=== PATIENT | male | born 1945 | race Caucasian/White ===

== ENCOUNTER 2018-08-27 08:36 | Inpatient (IN) | payer MEDICARE, MEDICAID ==
[~2018-08-27] VITALS: Ht 152.4 cm; Wt 75.0 kg
[~2018-08-27 08:36] MED LIST: AMLO10TA4 PO; ATOR20TA65 PO; COR6 PO; FURO-151 PO; METO-539 PO; PRED5TAB48 PO
[2018-08-27 09:26] LABS: HEMATOCRIT. 29.9 % (42.0-52.0); HEMOGLOBIN. 10.3 g/dL (14.0-18.0); MEAN CORPUSCULAR HEMOGLOBIN 31.9 pg (28.0-32.0); MEAN CORPUSCULAR VOLUME 92.9 fL (80.0-94.0); MEAN PLATELET VOLUME 7.3 fl (7.4-10.4); PLATELET 88 x1000/uL (130-400); RED BLOOD CELL COUNT 3.22 mill/uL (4.7-6.1); RED CELL DISTRIBUTION WIDTH 12.7 % (11.6-14.6)
[2018-08-27 09:28] LABS: CHLORIDE 97 mEq/L (98-107)
[2018-08-27 09:33] LABS: PARTIAL THROMBOPLASTIN TIME 39.4 sec (23.4-31.0)
[2018-08-27 09:36] LABS: PHOSPHORUS 2.6 mg/dL (2.5-4.9)
[2018-08-27 09:56] LABS: PLATELET ESTIMATE DECREASED
[2018-08-27] MEDS ORDERED: ONDANSETRON HCL 4MG/2ML INJ IV PRN (13:00)
[2018-08-27] MEDS ORDERED: DIPHENHYDRAMINE 50MG/ML VIAL IV PRN (13:00)
[2018-08-27] MEDS ORDERED: MAGNESIUM/ALUMINUM HYDROXIDE/SIMETHICONE 30ML UDC PO PRN (13:00)
[2018-08-27] MEDS ORDERED: LORAZEPAM 2MG/ML CPJ IV PRN (13:00)
[2018-08-27] MEDS ORDERED: IPRATROPIUM/ALBUTEROL 0.5-3(2.5)MG/3ML NEB INH PRN (13:00)
[2018-08-27] MEDS ORDERED: HYDROCODONE/ACETAMINOPHEN 5/325MG TABLET PO PRN (13:00)
[2018-08-27] MEDS: ACETAMINOPHEN 325MG TABLET PO PRN (14:53)
[2018-08-27] MEDS: CLONIDINE 0.1MG TABLET PO PRN (14:53)
[2018-08-27 15:05] LABS: PHOSPHORUS 3.2 mg/dL (2.5-4.9)
[2018-08-27 15:08] LABS: CREATINE KINASE 54 IU/L (39-308)
[2018-08-27 15:09] LABS: CREATINE KINASE MB FRACTION < 1.0 ng/mL (0.5-3.6)
[2018-08-27 16:15] VITALS: BP 144/72
[2018-08-27 19:27] LABS: T4 FREE 1.26 ng/dL (0.76-1.46)
[2018-08-27 19:49] LABS: FOLIC ACID (FOLATE) SERUM 13.2 ng/mL (>5.38)
[2018-08-27 20:00] VITALS: BP 153/43
[2018-08-28] VITALS: BP 156/64
[2018-08-28 01:19] LABS: CREATINE KINASE 50 IU/L (39-308)
[2018-08-28 01:20] LABS: CREATINE KINASE MB FRACTION < 1.0 ng/mL (0.5-3.6)
[2018-08-28 04:00] VITALS: BP 160/45
[2018-08-28 06:51] LABS: BASOPHILS % 0.5 % (0.0-2.0); EOSINOPHILS % 5.9 % (0.0-5.0); HEMATOCRIT. 27.9 % (42.0-52.0); HEMOGLOBIN. 9.7 g/dL (14.0-18.0); LYMPHOCYTES % 29.4 % (20.0-50.0); MEAN CORPUSCULAR HEMOGLOBIN 32.4 pg (28.0-32.0); MEAN CORPUSCULAR VOLUME 92.6 fL (80.0-94.0); MEAN PLATELET VOLUME 7.3 fl (7.4-10.4); MONOCYTES % 14.3 % (2.0-8.0); NEUTROPHILS % 49.9 % (40.0-76.0); PLATELET 77 x1000/uL (130-400); RED BLOOD CELL COUNT 3.01 mill/uL (4.7-6.1); RED CELL DISTRIBUTION WIDTH 12.7 % (11.6-14.6)
[2018-08-28 06:58] LABS: CHLORIDE 96 mEq/L (98-107)
[2018-08-28 07:09] LABS: HDL CHOLESTEROL 24 mg/dL (40-59)
[2018-08-28 07:12] LABS: LDL CHOLESTEROL 58 mg/dL (5-100)
[2018-08-28 08:00] VITALS: BP 173/73
[2018-08-28] MEDS: CLONIDINE 0.1MG TABLET PO PRN (11:19)
[2018-08-28 12:00] VITALS: BP 138/58
[2018-08-28] MEDS ORDERED: FUROSEMIDE 40MG TABLET PO SCH (13:15)
[2018-08-28] MEDS: CARVEDILOL 3.125 MG TABLET PO SCH ×2 (14:03→21:00)
[2018-08-28] MEDS: AMLODIPINE 10MG TABLET PO SCH (14:03)
[2018-08-28 16:00] VITALS: BP_SYST 138; BP_SYST 139; BP_DIAS 63; BP_DIAS 69
[2018-08-28 20:00] VITALS: BP 144/56
[2018-08-28] MEDS: ATORVASTATIN CALCIUM 20MG TABLET PO SCH (21:00)
[2018-08-29] VITALS: BP 150/66
[2018-08-29 04:00] VITALS: BP 144/69
[2018-08-29 06:30] LABS: BASOPHILS % 0.5 % (0.0-2.0); EOSINOPHILS % 6.3 % (0.0-5.0); HEMATOCRIT. 25.7 % (42.0-52.0); HEMOGLOBIN. 9.1 g/dL (14.0-18.0); LYMPHOCYTES % 29.4 % (20.0-50.0); MEAN CORPUSCULAR HEMOGLOBIN 32.5 pg (28.0-32.0); MEAN CORPUSCULAR VOLUME 91.1 fL (80.0-94.0); MEAN PLATELET VOLUME 7.5 fl (7.4-10.4); MONOCYTES % 13.2 % (2.0-8.0); NEUTROPHILS % 50.6 % (40.0-76.0); PLATELET 81 x1000/uL (130-400); RED BLOOD CELL COUNT 2.82 mill/uL (4.7-6.1); RED CELL DISTRIBUTION WIDTH 12.7 % (11.6-14.6)
[2018-08-29 08:00] VITALS: BP 156/69
[2018-08-29 08:05] LABS: TOTAL IRON BINDING CAPACITY 166 ug/dL (250-450)
[2018-08-29] MEDS: CARVEDILOL 3.125 MG TABLET PO SCH ×2 (09:00→21:38)
[2018-08-29] MEDS: AMLODIPINE 10MG TABLET PO SCH (09:00)
[2018-08-29 12:00] VITALS: BP 158/47
[2018-08-29 16:00] VITALS: BP 158/50
[2018-08-29] MEDS: ACETAMINOPHEN 325MG TABLET PO PRN (17:33)
[2018-08-29 20:00] VITALS: BP 120/69
[2018-08-29] MEDS ORDERED: EPOETIN ALFA 10000UNITS/ML VIAL SUBCUT SCH (21:00)
[2018-08-29] MEDS: ATORVASTATIN CALCIUM 20MG TABLET PO SCH (21:38)
[2018-08-30] VITALS: BP 174/53
[2018-08-30] MEDS: ACETAMINOPHEN 325MG TABLET PO PRN (01:46)
[2018-08-30] MEDS: CLONIDINE 0.1MG TABLET PO PRN (01:46)
[2018-08-30 04:00] VITALS: BP 105/85
[2018-08-30 06:49] LABS: BASOPHILS % 0.6 % (0.0-2.0); EOSINOPHILS % 5.7 % (0.0-5.0); HEMOGLOBIN. 9.3 g/dL (14.0-18.0); LYMPHOCYTES % 29.6 % (20.0-50.0); MEAN CORPUSCULAR HEMOGLOBIN 32.1 pg (28.0-32.0); MEAN CORPUSCULAR VOLUME 92.8 fL (80.0-94.0); MEAN PLATELET VOLUME 7.4 fl (7.4-10.4); MONOCYTES % 13.4 % (2.0-8.0); NEUTROPHILS % 50.7 % (40.0-76.0); PLATELET 91 x1000/uL (130-400); RED BLOOD CELL COUNT 2.91 mill/uL (4.7-6.1); RED CELL DISTRIBUTION WIDTH 12.6 % (11.6-14.6)
[2018-08-30 08:00] VITALS: BP 168/54
[2018-08-30] MEDS: AMLODIPINE 10MG TABLET PO SCH (08:26)
[2018-08-30] MEDS: CARVEDILOL 3.125 MG TABLET PO SCH (08:26)
[2018-08-30 11:51] VITALS: BP 142/52
[2018-08-30 12:00] VITALS: BP 142/52
== END 2018-08-30 12:59 | disposition home or self-care (01) | DRG 91 ==
LOC: ER 08:36 → EDBEDREQ 09:11 → 8WST 09:59 → EDBEDREQ 10:07 → ENRESERV 13:20 → CANBEDREQ 08-28 00:38
PROVIDERS: ADMIT Internal Medicine; ATTEND Internal Medicine
PROC: 4A00X4Z Measurement of Central Nervous Electrical Activity, External Approach (ICD-10-PCS; principal; 2018-08-28)
PROC: 5A1D70Z Performance of Urinary Filtration, Intermittent, Less than 6 Hours Per Day (ICD-10-PCS; 2018-08-29)
DX: R25.1 Tremor, unspecified (principal); N18.6 End stage renal disease; D61.818 Other pancytopenia; E87.1 Hypo-osmolality and hyponatremia; I12.0 Hypertensive chronic kidney disease with stage 5 chronic kidney disease or end stage renal disease; H70.90 Unspecified mastoiditis, unspecified ear; D63.8 Anemia in other chronic diseases classified elsewhere; E03.9 Hypothyroidism, unspecified; H54.7 Unspecified visual loss; E11.22 Type 2 diabetes mellitus with diabetic chronic kidney disease; E78.00 Pure hypercholesterolemia, unspecified; Z79.899 Other long term (current) drug therapy; Z99.2 Dependence on renal dialysis
CPT/HCPCS: 36415; 70551; 71045; 80048; 80061; 82390; 82550; 82553; 82607; 82746; 82962; 83540; 83550; 83605; 83735; 84100; 84145; 84439; 84443; 84481; 84484; 93005; 93970; 97162; 97166; 99285; J0885

== ENCOUNTER 2018-09-24 05:35 | Inpatient (IN) | payer MEDICARE, MEDICAID ==
[~2018-09-24] VITALS: Ht 165.1 cm; Wt 73.9 kg
[~2018-09-24 05:35] MED LIST changes: -COR6 PO; -PRED5TAB48 PO
[2018-09-24] MEDS ORDERED: AMLODIPINE 10MG TABLET PO ONE (06:45)
[2018-09-24 07:03] LABS: BASOPHILS % 0.6 % (0.0-2.0); EOSINOPHILS % 5.8 % (0.0-5.0); HEMATOCRIT. 27.2 % (42.0-52.0); HEMOGLOBIN. 9.5 g/dL (14.0-18.0); LYMPHOCYTES % 32.4 % (20.0-50.0); MEAN CORPUSCULAR HEMOGLOBIN 31.8 pg (28.0-32.0); MEAN CORPUSCULAR VOLUME 91.5 fL (80.0-94.0); MEAN PLATELET VOLUME 6.8 fl (7.4-10.4); MONOCYTES % 13.4 % (2.0-8.0); NEUTROPHILS % 47.8 % (40.0-76.0); PLATELET 93 x1000/uL (130-400); RED BLOOD CELL COUNT 2.97 mill/uL (4.7-6.1); RED CELL DISTRIBUTION WIDTH 13.3 % (11.6-14.6)
[2018-09-24 07:08] LABS: CHLORIDE 100 mEq/L (98-107)
[2018-09-24] MEDS ORDERED: FOLIC ACID/VITAMIN B COMP W-C TABLET PO NR (10:15)
[2018-09-24] MEDS ORDERED: CALCIUM ACETATE 667MG CAPSULE PO SCH (10:15)
[2018-09-24 14:00] VITALS: BP 161/75
[2018-09-24] MEDS ORDERED: MAGNESIUM/ALUMINUM HYDROXIDE/SIMETHICONE 30ML UDC PO PRN (15:15)
[2018-09-24] MEDS ORDERED: HYDROCODONE/ACETAMINOPHEN 5/325MG TABLET PO PRN (15:15)
[2018-09-24] MEDS ORDERED: ONDANSETRON HCL 4MG/2ML INJ IV PRN (15:15)
[2018-09-24] MEDS ORDERED: IPRATROPIUM/ALBUTEROL 0.5-3(2.5)MG/3ML NEB INH PRN (15:15)
[2018-09-24] MEDS ORDERED: NITROGLYCERIN 0.4MG TABLET SL SL PRN (15:15)
[2018-09-24] MEDS ORDERED: DOCUSATE SODIUM 100MG CAPSULE PO PRN (15:15)
[2018-09-24] MEDS ORDERED: CLONIDINE 0.1MG TABLET PO PRN (15:15)
[2018-09-24] MEDS ORDERED: DIPHENHYDRAMINE 50MG/ML VIAL IV PRN (15:15)
[2018-09-24] MEDS ORDERED: ENOXAPARIN 40MG/0.4ML SYR SUBCUT SCH (15:15)
[2018-09-24] MEDS ORDERED: GUAIFENESIN 200MG/10ML SUGAR FREE UDC PO PRN (15:15)
[2018-09-24 16:02] VITALS: BP 148/68
[2018-09-24] MEDS: CALCIUM ACETATE 667MG CAPSULE PO SCH (17:05)
[2018-09-24 20:00] VITALS: BP 160/71
[2018-09-24 23:47] LABS: CREATINE KINASE 40 IU/L (39-308)
[2018-09-24 23:48] LABS: CREATINE KINASE MB FRACTION < 1.0 ng/mL (0.5-3.6)
[2018-09-25] VITALS: BP 139/81
[2018-09-25 04:00] VITALS: BP 153/69
[2018-09-25] MEDS: ACETAMINOPHEN 325MG TABLET PO PRN (06:24)
[2018-09-25 07:19] LABS: BASOPHILS % 0.6 % (0.0-2.0); EOSINOPHILS % 6.8 % (0.0-5.0); HEMATOCRIT. 28.8 % (42.0-52.0); LYMPHOCYTES % 26.8 % (20.0-50.0); MEAN CORPUSCULAR HEMOGLOBIN 31.6 pg (28.0-32.0); MEAN CORPUSCULAR VOLUME 90.7 fL (80.0-94.0); MONOCYTES % 12.4 % (2.0-8.0); NEUTROPHILS % 53.4 % (40.0-76.0); PLATELET 105 x1000/uL (130-400); RED BLOOD CELL COUNT 3.18 mill/uL (4.7-6.1); RED CELL DISTRIBUTION WIDTH 13.4 % (11.6-14.6)
[2018-09-25 08:00] VITALS: BP 150/67
[2018-09-25 08:11] LABS: CHLORIDE 99 mEq/L (98-107)
[2018-09-25 08:33] LABS: LDL CHOLESTEROL 65 mg/dL (5-100)
[2018-09-25 08:35] LABS: CREATINE KINASE 37 IU/L (39-308)
[2018-09-25 08:36] LABS: HDL CHOLESTEROL 27 mg/dL (40-59)
[2018-09-25] MEDS: CALCIUM ACETATE 667MG CAPSULE PO SCH ×3 (08:36→18:41)
[2018-09-25] MEDS: AMLODIPINE 10MG TABLET PO SCH (08:37)
[2018-09-25 08:38] LABS: CREATINE KINASE MB FRACTION < 1.0 ng/mL (0.5-3.6)
[2018-09-25] MEDS: FOLIC ACID/VITAMIN B COMP W-C TABLET PO SCH (08:38)
[2018-09-25 12:01] VITALS: BP 146/65
[2018-09-25] MEDS ORDERED: ENOXAPARIN 30MG/0.3ML SYR SUBCUT SCH (12:36)
[2018-09-25 15:57] VITALS: BP 151/64
[2018-09-25 20:00] VITALS: BP 164/73
[2018-09-26] VITALS: BP 112/70
[2018-09-26 04:00] VITALS: BP 179/80
[2018-09-26 07:06] LABS: BASOPHILS % 0.7 % (0.0-2.0); EOSINOPHILS % 6.2 % (0.0-5.0); HEMATOCRIT. 26.6 % (42.0-52.0); HEMOGLOBIN. 9.3 g/dL (14.0-18.0); LYMPHOCYTES % 33.9 % (20.0-50.0); MEAN CORPUSCULAR HEMOGLOBIN 31.6 pg (28.0-32.0); MEAN CORPUSCULAR VOLUME 90.4 fL (80.0-94.0); MEAN PLATELET VOLUME 7.4 fl (7.4-10.4); MONOCYTES % 11.8 % (2.0-8.0); NEUTROPHILS % 47.4 % (40.0-76.0); PLATELET 96 x1000/uL (130-400); RED BLOOD CELL COUNT 2.94 mill/uL (4.7-6.1); RED CELL DISTRIBUTION WIDTH 13.7 % (11.6-14.6)
[2018-09-26 08:00] VITALS: BP 177/80
[2018-09-26] MEDS: CALCIUM ACETATE 667MG CAPSULE PO SCH ×3 (08:23→18:28)
[2018-09-26] MEDS: FOLIC ACID/VITAMIN B COMP W-C TABLET PO SCH (08:25)
[2018-09-26] MEDS: AMLODIPINE 10MG TABLET PO SCH (08:29)
[2018-09-26 09:36] LABS: T4 FREE 1.09 ng/dL (0.76-1.46)
[2018-09-26] MEDS: ASPIRIN 81MG TABLET PO SCH (09:54)
[2018-09-26 12:00] VITALS: BP 181/79
[2018-09-26] MEDS: ACETAMINOPHEN 325MG TABLET PO PRN (15:23)
[2018-09-26] MEDS ORDERED: REGADENOSON 0.4 MG/5 ML IV SCH (15:30)
[2018-09-26 15:41] LABS: CREATINE KINASE 41 IU/L (39-308)
[2018-09-26 15:42] LABS: CREATINE KINASE MB FRACTION < 1.0 ng/mL (0.5-3.6)
[2018-09-26 16:00] VITALS: BP 128/80
[2018-09-26 20:00] VITALS: BP 140/71
[2018-09-27] VITALS (7 sets, daily range): BP systolic 139–162; BP diastolic 66–87
[2018-09-27 01:16] LABS: CREATINE KINASE 35 IU/L (39-308)
[2018-09-27 01:17] LABS: CREATINE KINASE MB FRACTION < 1.0 ng/mL (0.5-3.6)
[2018-09-27 06:11] LABS: BASOPHILS % 0.7 % (0.0-2.0); EOSINOPHILS % 5.9 % (0.0-5.0); HEMATOCRIT. 29.8 % (42.0-52.0); HEMOGLOBIN. 10.5 g/dL (14.0-18.0); LYMPHOCYTES % 32.4 % (20.0-50.0); MEAN CORPUSCULAR HEMOGLOBIN 31.9 pg (28.0-32.0); MEAN CORPUSCULAR VOLUME 90.8 fL (80.0-94.0); MEAN PLATELET VOLUME 7.3 fl (7.4-10.4); MONOCYTES % 9.7 % (2.0-8.0); NEUTROPHILS % 51.3 % (40.0-76.0); PLATELET 115 x1000/uL (130-400); RED BLOOD CELL COUNT 3.28 mill/uL (4.7-6.1); RED CELL DISTRIBUTION WIDTH 13.6 % (11.6-14.6)
[2018-09-27 06:31] LABS: CHLORIDE 100 mEq/L (98-107)
[2018-09-27 06:46] LABS: CREATINE KINASE 44 IU/L (39-308)
[2018-09-27 06:48] LABS: CREATINE KINASE MB FRACTION < 1.0 ng/mL (0.5-3.6)
[2018-09-27] MEDS: AMLODIPINE 10MG TABLET PO SCH (08:17)
[2018-09-27] MEDS: FOLIC ACID/VITAMIN B COMP W-C TABLET PO SCH (08:17)
[2018-09-27] MEDS: CALCIUM ACETATE 667MG CAPSULE PO SCH ×3 (08:17→19:03)
[2018-09-27] MEDS: ASPIRIN 81MG TABLET PO SCH (08:18)
[2018-09-27] MEDS: ACETAMINOPHEN 325MG TABLET PO PRN (21:54)
[2018-09-28 04:02] VITALS: BP 140/73
[2018-09-28 05:47] LABS: BASOPHILS % 0.8 % (0.0-2.0); EOSINOPHILS % 6.9 % (0.0-5.0); HEMATOCRIT. 26.2 % (42.0-52.0); HEMOGLOBIN. 9.3 g/dL (14.0-18.0); LYMPHOCYTES % 30.1 % (20.0-50.0); MEAN CORPUSCULAR HEMOGLOBIN 32.2 pg (28.0-32.0); MEAN CORPUSCULAR VOLUME 90.2 fL (80.0-94.0); MEAN PLATELET VOLUME 7.1 fl (7.4-10.4); MONOCYTES % 11.2 % (2.0-8.0); PLATELET 87 x1000/uL (130-400); RED CELL DISTRIBUTION WIDTH 13.5 % (11.6-14.6)
[2018-09-28] MEDS: CALCIUM ACETATE 667MG CAPSULE PO SCH ×2 (07:50→12:50)
[2018-09-28] MEDS ORDERED: REGADENOSON 0.4 MG/5 ML IV ONE (08:14)
[2018-09-28] MEDS: AMLODIPINE 10MG TABLET PO SCH (09:00)
[2018-09-28] MEDS: FOLIC ACID/VITAMIN B COMP W-C TABLET PO SCH (09:00)
[2018-09-28] MEDS: ASPIRIN 81MG TABLET PO SCH (09:00)
[2018-09-28 12:00] VITALS: BP 162/77
[2018-09-28 17:57] VITALS: BP 162/77
[2018-09-28] MEDS ORDERED: EPOETIN ALFA 10000UNITS/ML VIAL SUBCUT SCH (21:00)
== END 2018-09-28 18:25 | disposition home or self-care (01) | DRG 205 ==
LOC: ER 05:54 → 6WST 09:44 → ENRESERV 12:22 → 6WST 14:30
PROVIDERS: ADMIT Hospitalist; ATTEND Hospitalist
PROC: 5A1D70Z Performance of Urinary Filtration, Intermittent, Less than 6 Hours Per Day (ICD-10-PCS; 2018-09-24)
PROC: 5A1D70Z Performance of Urinary Filtration, Intermittent, Less than 6 Hours Per Day (ICD-10-PCS; 2018-09-25)
PROC: 5A1D70Z Performance of Urinary Filtration, Intermittent, Less than 6 Hours Per Day (ICD-10-PCS; principal; 2018-09-27)
DX: M94.0 Chondrocostal junction syndrome [Tietze] (principal); N18.6 End stage renal disease; J98.11 Atelectasis; I13.2 Hypertensive heart and chronic kidney disease with heart failure and with stage 5 chronic kidney disease, or end stage renal disease; Z99.2 Dependence on renal dialysis; E78.00 Pure hypercholesterolemia, unspecified; D64.9 Anemia, unspecified; E87.5 Hyperkalemia; E03.9 Hypothyroidism, unspecified; J44.9 Chronic obstructive pulmonary disease, unspecified; E11.22 Type 2 diabetes mellitus with diabetic chronic kidney disease; H54.7 Unspecified visual loss; Z82.49 Family history of ischemic heart disease and other diseases of the circulatory system; Z87.891 Personal history of nicotine dependence
CPT/HCPCS: 36415; 71045; 78452; 80048; 80061; 82550; 82553; 83036; 83880; 84132; 84439; 84443; 84484; 85379; 93005; 93017; 93306; 93970; 97162; 99285; A9500; J0885; J1200; J1650; J2405; J2785

== ENCOUNTER 2018-10-06 07:28 | Inpatient (IN) | payer MEDICARE, MEDICAID ==
[~2018-10-06] VITALS: Ht 165.1 cm; Wt 65.8 kg
[2018-10-06] MEDS ORDERED: NITROGLYCERIN OINT 1GM/INCH UDPKT TD ONE (08:00)
[2018-10-06 08:33] LABS: BASOPHILS % 1.1 % (0.0-2.0); EOSINOPHILS % 8.2 % (0.0-5.0); HEMATOCRIT. 25.5 % (42.0-52.0); HEMOGLOBIN. 8.9 g/dL (14.0-18.0); MEAN CORPUSCULAR HEMOGLOBIN 31.6 pg (28.0-32.0); MEAN PLATELET VOLUME 7.6 fl (7.4-10.4); MONOCYTES % 7.5 % (2.0-8.0); NEUTROPHILS % 54.2 % (40.0-76.0); PLATELET 90 x1000/uL (130-400); RED BLOOD CELL COUNT 2.83 mill/uL (4.7-6.1); RED CELL DISTRIBUTION WIDTH 14.3 % (11.6-14.6)
[2018-10-06 08:34] LABS: CHLORIDE 102 mEq/L (98-107)
[2018-10-06 08:36] LABS: PROTHROMBIN TIME 10.5 sec (9.6-11.0)
[2018-10-06 12:00] VITALS: BP 172/84
[2018-10-06 12:50] VITALS: BP 160/89
[2018-10-06] MEDS: AMLODIPINE 10MG TABLET PO SCH (15:29)
[2018-10-06] MEDS ORDERED: ONDANSETRON HCL 4MG/2ML INJ IV PRN (15:30)
[2018-10-06] MEDS ORDERED: HYDROCODONE/ACETAMINOPHEN 5/325MG TABLET PO PRN (15:30)
[2018-10-06] MEDS ORDERED: ACETAMINOPHEN 325MG TABLET PO PRN (15:30)
[2018-10-06] MEDS ORDERED: DEXTROSE 50% WATER 50ML SYRINGE IV PRN ×2 (15:30)
[2018-10-06] MEDS ORDERED: CLONIDINE 0.1MG TABLET PO PRN (15:30)
[2018-10-06 16:00] VITALS: BP 147/69
[2018-10-06] MEDS: BLOOD SUGAR DIAGNOSTIC STRIP TEST SCH ×2 (17:40→21:00)
[2018-10-06] MEDS: INSULIN LISPRO 100 UNITS/ML SUBCUT SCH ×2 (18:10→21:00)
[2018-10-06 20:00] VITALS: BP 154/72
[2018-10-06] MEDS ORDERED: ATORVASTATIN CALCIUM 20MG TABLET PO SCH (21:00)
[2018-10-06] MEDS: METOPROLOL TARTRATE 50MG TABLET PO SCH (22:48)
[2018-10-07] VITALS: BP 144/70
[2018-10-07 04:10] VITALS: BP 156/76
[2018-10-07] MEDS: BLOOD SUGAR DIAGNOSTIC STRIP TEST SCH ×2 (05:50→12:40)
[2018-10-07 08:00] VITALS: BP 156/72
[2018-10-07] MEDS: INSULIN LISPRO 100 UNITS/ML SUBCUT SCH ×2 (08:10→13:10)
[2018-10-07] MEDS: AMLODIPINE 10MG TABLET PO SCH (08:50)
[2018-10-07] MEDS: METOPROLOL TARTRATE 50MG TABLET PO SCH (08:51)
[2018-10-07 09:24] LABS: BASOPHILS % 0.8 % (0.0-2.0); EOSINOPHILS % 6.3 % (0.0-5.0); HEMATOCRIT. 24.9 % (42.0-52.0); HEMOGLOBIN. 8.7 g/dL (14.0-18.0); MEAN CORPUSCULAR HEMOGLOBIN 31.9 pg (28.0-32.0); MEAN CORPUSCULAR VOLUME 90.7 fL (80.0-94.0); MEAN PLATELET VOLUME 7.3 fl (7.4-10.4); MONOCYTES % 10.5 % (2.0-8.0); NEUTROPHILS % 50.4 % (40.0-76.0); PLATELET 83 x1000/uL (130-400); RED BLOOD CELL COUNT 2.74 mill/uL (4.7-6.1); RED CELL DISTRIBUTION WIDTH 14.1 % (11.6-14.6)
[2018-10-07 09:41] LABS: PHOSPHORUS 3.9 mg/dL (2.5-4.9)
[2018-10-07 12:00] VITALS: BP 142/68
[2018-10-07 16:56] VITALS: BP 151/71
== END 2018-10-07 17:20 | disposition home or self-care (01) | DRG 205 ==
LOC: ER 07:33 → SUPCPDRO 08:52 → 7WST 09:26 → EDBEDREQ 10:24 → ENRESERV 10:29 → ER 11:52
PROVIDERS: ADMIT Family Medicine Adult Medicine; ATTEND Family Medicine Adult Medicine
DX: M94.0 Chondrocostal junction syndrome [Tietze] (principal); N18.6 End stage renal disease; I24.9 Acute ischemic heart disease, unspecified; D61.818 Other pancytopenia; I13.11 Hypertensive heart and chronic kidney disease without heart failure, with stage 5 chronic kidney disease, or end stage renal disease; D63.1 Anemia in chronic kidney disease; E11.22 Type 2 diabetes mellitus with diabetic chronic kidney disease; E78.00 Pure hypercholesterolemia, unspecified; E78.5 Hyperlipidemia, unspecified; Z82.49 Family history of ischemic heart disease and other diseases of the circulatory system; Z99.2 Dependence on renal dialysis; Z79.84 Long term (current) use of oral hypoglycemic drugs
CPT/HCPCS: 36415; 71045; 80048; 80061; 82962; 83735; 84100; 84443; 84484; 93005; 93970; 99285

== ENCOUNTER 2018-12-29 07:15 | Inpatient (IN) | payer MEDICARE, MEDICAID ==
[~2018-12-29] VITALS: Ht 165.1 cm; Wt 68.0 kg
[2018-12-29 07:53] LABS: BASOPHILS % 1.1 % (0.0-2.0); EOSINOPHILS % 6.5 % (0.0-5.0); HEMATOCRIT. 29.9 % (42.0-52.0); HEMOGLOBIN. 10.4 g/dL (14.0-18.0); LYMPHOCYTES % 31.3 % (20.0-50.0); MEAN CORPUSCULAR HEMOGLOBIN 31.1 pg (28.0-32.0); MEAN CORPUSCULAR VOLUME 89.5 fL (80.0-94.0); MONOCYTES % 8.4 % (2.0-8.0); NEUTROPHILS % 52.7 % (40.0-76.0); PLATELET 94 x1000/uL (130-400); RED BLOOD CELL COUNT 3.34 mill/uL (4.7-6.1); RED CELL DISTRIBUTION WIDTH 16.4 % (11.6-14.6)
[2018-12-29 07:57] LABS: CHLORIDE 102 mEq/L (98-107)
[2018-12-29 08:00] LABS: INR 1.1
[2018-12-29] MEDS ORDERED: CLONIDINE 0.1MG TABLET PO PRN (09:15)
[2018-12-29] MEDS ORDERED: ONDANSETRON HCL 4MG/2ML INJ IV PRN (09:15)
[2018-12-29] MEDS ORDERED: DOCUSATE SODIUM 100MG CAPSULE PO PRN (09:15)
[2018-12-29] MEDS: DEXT 5%/0.45% NACL 1000ML 1,000 ML IV SCH (09:15)
[2018-12-29] MEDS ORDERED: ACETAMINOPHEN 325MG TABLET PO PRN (09:15)
[2018-12-29] MEDS ORDERED: AMLODIPINE 10MG TABLET PO SCH (12:00)
[2018-12-29] MEDS ORDERED: SODIUM BICARBONATE 4% (2.4MEQ) 5ML VIAL IV ONE (12:50)
[2018-12-29] MEDS ORDERED: LIDOCAINE HCL 1% 20ML VIAL (Pyxis) INJ ONE (12:51)
[2018-12-29] MEDS ORDERED: IOHEXOL-300 100 ML BOTTLE ONE (12:51)
[2018-12-29 13:25] VITALS: BP 181/87
[2018-12-29 13:30] VITALS: BP 180/85
[2018-12-29 13:45] VITALS: BP 176/85
[2018-12-29] MEDS ORDERED: HYDROMORPHONE HCL/PF 2MG/ML CPJ IM PRN (16:30)
[2018-12-29 17:00] VITALS: BP 175/90
[2018-12-29 20:00] VITALS: BP 149/71
[2018-12-29] MEDS ORDERED: ATORVASTATIN CALCIUM 20MG TABLET PO SCH (21:00)
[2018-12-29] MEDS: METOPROLOL TARTRATE 50MG TABLET PO SCH (21:09)
[2018-12-30] VITALS: BP 135/75
[2018-12-30 04:00] VITALS: BP 159/73
[2018-12-30] MEDS: DEXT 5%/0.45% NACL 1000ML 1,000 ML IV SCH (07:10)
[2018-12-30] MEDS ORDERED: AMLODIPINE 10MG TABLET PO SCH (09:00)
[2018-12-30] MEDS: METOPROLOL TARTRATE 50MG TABLET PO SCH (09:33)
[2018-12-30 11:46] VITALS: BP 160/76
== END 2018-12-30 12:30 | disposition home or self-care (01) | DRG 314 ==
LOC: ER 07:15 → 8WST 08:57 → ENRESERV 15:41
PROVIDERS: ADMIT Internal Medicine Nephrology; ATTEND Internal Medicine Nephrology
PROC: B51W1ZZ Fluoroscopy of Dialysis Shunt/Fistula using Low Osmolar Contrast (ICD-10-PCS; principal; 2018-12-29)
PROC: B5181ZZ Fluoroscopy of Superior Vena Cava using Low Osmolar Contrast (ICD-10-PCS; 2018-12-29)
DX: T82.898A Other specified complication of vascular prosthetic devices, implants and grafts, initial encounter (principal); N18.6 End stage renal disease; I12.0 Hypertensive chronic kidney disease with stage 5 chronic kidney disease or end stage renal disease; D64.9 Anemia, unspecified; E11.22 Type 2 diabetes mellitus with diabetic chronic kidney disease; E78.00 Pure hypercholesterolemia, unspecified; Z99.2 Dependence on renal dialysis; E78.5 Hyperlipidemia, unspecified; Z79.84 Long term (current) use of oral hypoglycemic drugs
CPT/HCPCS: 36415; 36901; 71045; 76937; 82962; 83880; 84484; 93005; 96360; 96361; 99285; C1769; C1887; J1644; J3490; Q9967

== ENCOUNTER 2019-06-10 07:40 | Inpatient (IN) | payer MEDICARE, MEDICAID ==
[~2019-06-10] VITALS: Ht 165.1 cm; Wt 67.1 kg
[2019-06-10] MEDS ORDERED: SODIUM CHLORIDE 0.9% 500 ML IV ONE (10:28)
[2019-06-10] MEDS ORDERED: LORAZEPAM 2MG/ML CPJ IV ONE (10:30)
[2019-06-10 10:50] LABS: BASOPHILS % 0.8 % (0.0-2.0); EOSINOPHILS % 5.8 % (0.0-5.0); HEMATOCRIT. 35.2 % (42.0-52.0); LYMPHOCYTES % 30.5 % (20.0-50.0); MEAN CORPUSCULAR HEMOGLOBIN 31.9 pg (28.0-32.0); MEAN CORPUSCULAR VOLUME 93.6 fL (80.0-94.0); MEAN PLATELET VOLUME 7.3 fl (7.4-10.4); MONOCYTES % 9.1 % (2.0-8.0); NEUTROPHILS % 53.8 % (40.0-76.0); PLATELET 101 x1000/uL (130-400); RED BLOOD CELL COUNT 3.76 mill/uL (4.7-6.1); RED CELL DISTRIBUTION WIDTH 14.7 % (11.6-14.6)
[2019-06-10 10:56] LABS: CHLORIDE 99 mEq/L (98-107)
[2019-06-10 10:58] LABS: PROTHROMBIN TIME 10.7 sec (9.6-11.0)
[2019-06-10] MEDS ORDERED: ACETAMINOPHEN 325MG TABLET PO PRN (12:45)
[2019-06-10] MEDS ORDERED: ONDANSETRON HCL 4MG/2ML INJ IV PRN (12:45)
[2019-06-10] MEDS ORDERED: ENOXAPARIN 40MG/0.4ML SYR SUBCUT SCH (12:45)
[2019-06-10] MEDS ORDERED: DOCUSATE SODIUM 100MG CAPSULE PO PRN (12:45)
[2019-06-10] MEDS ORDERED: SEVELAMER CARBONATE 800 MG TABLET PO NR ×2 (13:45→17:30)
[2019-06-10] MEDS ORDERED: FOLIC ACID/VITAMIN B COMP W-C TABLET PO NR (14:00)
[2019-06-10] MEDS: ENOXAPARIN 30MG/0.3ML SYR SUBCUT SCH (14:09)
[2019-06-10 23:00] VITALS: BP 166/72
[2019-06-10] MEDS ORDERED: DEXTROSE 50% WATER 50ML SYRINGE IV PRN (23:00)
[2019-06-10 23:10] VITALS: BP 166/72
[2019-06-10] MEDS: AMLODIPINE 5MG TABLET PO SCH (23:39)
[2019-06-10] MEDS: ATORVASTATIN CALCIUM 20MG TABLET PO SCH (23:40)
[2019-06-10] MEDS: METOPROLOL TARTRATE 50MG TABLET PO SCH (23:40)
[2019-06-11 04:00] VITALS: BP 159/74
[2019-06-11] MEDS: BLOOD SUGAR DIAGNOSTIC STRIP TEST SCH ×4 (06:27→21:00)
[2019-06-11] MEDS: INSULIN LISPRO 100 UNITS/ML SUBCUT SCH ×4 (07:42→21:00)
[2019-06-11 07:59] LABS: BASOPHILS % 0.8 % (0.0-2.0); EOSINOPHILS % 4.1 % (0.0-5.0); HEMOGLOBIN. 12.4 g/dL (14.0-18.0); MEAN CORPUSCULAR HEMOGLOBIN 31.4 pg (28.0-32.0); MEAN CORPUSCULAR VOLUME 94.2 fL (80.0-94.0); MEAN PLATELET VOLUME 7.5 fl (7.4-10.4); MONOCYTES % 9.6 % (2.0-8.0); NEUTROPHILS % 56.5 % (40.0-76.0); PLATELET 94 x1000/uL (130-400); RED BLOOD CELL COUNT 3.93 mill/uL (4.7-6.1); RED CELL DISTRIBUTION WIDTH 14.3 % (11.6-14.6)
[2019-06-11 08:00] VITALS: BP 169/73
[2019-06-11 08:29] LABS: CHLORIDE 101 mEq/L (98-107)
[2019-06-11] MEDS: SEVELAMER CARBONATE 800 MG TABLET PO SCH ×3 (08:39→17:39)
[2019-06-11] MEDS: METOPROLOL TARTRATE 50MG TABLET PO SCH ×2 (08:40→22:47)
[2019-06-11] MEDS: FOLIC ACID/VITAMIN B COMP W-C TABLET PO SCH (08:40)
[2019-06-11] MEDS: AMLODIPINE 5MG TABLET PO SCH ×2 (08:40→22:48)
[2019-06-11] MEDS: ENOXAPARIN 30MG/0.3ML SYR SUBCUT SCH (08:41)
[2019-06-11 08:42] LABS: LDL CHOLESTEROL 62 mg/dL (5-100)
[2019-06-11 08:43] LABS: HDL CHOLESTEROL 32 mg/dL (40-59)
[2019-06-11 11:25] LABS: T4 FREE 0.94 ng/dL (0.76-1.46)
[2019-06-11 12:00] VITALS: BP 100/62
[2019-06-11] MEDS ORDERED: IOHEXOL-350 100 ML BOTTLE ONE (13:01)
[2019-06-11 16:00] VITALS: BP 164/69
[2019-06-11 20:00] VITALS: BP 157/66
[2019-06-11] MEDS: ATORVASTATIN CALCIUM 20MG TABLET PO SCH (22:47)
[2019-06-12] VITALS: BP 166/72
[2019-06-12 04:00] VITALS: BP 155/68
[2019-06-12] MEDS: BLOOD SUGAR DIAGNOSTIC STRIP TEST SCH ×4 (06:31→20:28)
[2019-06-12 08:00] VITALS: BP 169/74
[2019-06-12] MEDS: INSULIN LISPRO 100 UNITS/ML SUBCUT SCH ×4 (08:08→20:29)
[2019-06-12] MEDS: METOPROLOL TARTRATE 50MG TABLET PO SCH ×2 (08:57→20:28)
[2019-06-12] MEDS: SEVELAMER CARBONATE 800 MG TABLET PO SCH ×3 (08:57→18:53)
[2019-06-12] MEDS: FOLIC ACID/VITAMIN B COMP W-C TABLET PO SCH (08:58)
[2019-06-12] MEDS: AMLODIPINE 5MG TABLET PO SCH ×2 (08:58→20:28)
[2019-06-12 12:00] VITALS: BP 149/60
[2019-06-12 16:00] VITALS: BP 159/59
[2019-06-12 20:00] VITALS: BP 162/48
[2019-06-12] MEDS: ATORVASTATIN CALCIUM 20MG TABLET PO SCH (20:28)
[2019-06-13 00:05] VITALS: BP 162/51
[2019-06-13 04:00] VITALS: BP 146/56
[2019-06-13] MEDS: BLOOD SUGAR DIAGNOSTIC STRIP TEST SCH ×4 (05:53→21:00)
[2019-06-13 08:00] VITALS: BP 167/70
[2019-06-13] MEDS: INSULIN LISPRO 100 UNITS/ML SUBCUT SCH ×4 (08:10→21:00)
[2019-06-13] MEDS: SEVELAMER CARBONATE 800 MG TABLET PO SCH ×3 (08:50→18:30)
[2019-06-13] MEDS: METOPROLOL TARTRATE 50MG TABLET PO SCH ×2 (08:50→21:08)
[2019-06-13] MEDS: FOLIC ACID/VITAMIN B COMP W-C TABLET PO SCH (08:50)
[2019-06-13] MEDS: AMLODIPINE 5MG TABLET PO SCH ×2 (08:51→21:08)
[2019-06-13 12:00] VITALS: BP 153/60
[2019-06-13 16:00] VITALS: BP 150/66
[2019-06-13 19:43] VITALS: BP 151/59
[2019-06-13] MEDS: ATORVASTATIN CALCIUM 20MG TABLET PO SCH (21:08)
[2019-06-14 00:05] VITALS: BP 148/58
[2019-06-14 04:00] VITALS: BP 152/70
[2019-06-14] MEDS: BLOOD SUGAR DIAGNOSTIC STRIP TEST SCH ×3 (06:10→17:01)
[2019-06-14] MEDS: INSULIN LISPRO 100 UNITS/ML SUBCUT SCH ×3 (07:26→17:01)
[2019-06-14 07:48] LABS: BASOPHILS % 0.7 % (0.0-2.0); EOSINOPHILS % 5.1 % (0.0-5.0); HEMOGLOBIN. 11.7 g/dL (14.0-18.0); LYMPHOCYTES % 26.4 % (20.0-50.0); MEAN CORPUSCULAR HEMOGLOBIN 31.9 pg (28.0-32.0); MEAN CORPUSCULAR VOLUME 92.7 fL (80.0-94.0); MEAN PLATELET VOLUME 7.8 fl (7.4-10.4); MONOCYTES % 11.3 % (2.0-8.0); NEUTROPHILS % 56.5 % (40.0-76.0); PLATELET 65 x1000/uL (130-400); RED BLOOD CELL COUNT 3.67 mill/uL (4.7-6.1); RED CELL DISTRIBUTION WIDTH 14.6 % (11.6-14.6)
[2019-06-14 08:00] VITALS: BP 167/72
[2019-06-14] MEDS: FOLIC ACID/VITAMIN B COMP W-C TABLET PO SCH (09:02)
[2019-06-14] MEDS: METOPROLOL TARTRATE 50MG TABLET PO SCH (09:02)
[2019-06-14] MEDS: SEVELAMER CARBONATE 800 MG TABLET PO SCH ×3 (09:03→17:03)
[2019-06-14] MEDS: AMLODIPINE 5MG TABLET PO SCH (09:03)
[2019-06-14] MEDS ORDERED: CYANOCOBALAMIN 1000MCG TABLET PO SCH (11:30)
[2019-06-14 12:00] VITALS: BP 162/69
[2019-06-14 16:00] VITALS: BP 147/75
== END 2019-06-14 17:37 | disposition left against medical advice (07) | DRG 682 ==
LOC: ER 07:40 → 7WST 12:27 → EDBEDREQTM 13:14 → EDBEDREQ 13:14 → ENRESERV 20:36
PROVIDERS: ADMIT Internal Medicine Nephrology; ATTEND Internal Medicine Nephrology
PROC: 5A1D70Z Performance of Urinary Filtration, Intermittent, Less than 6 Hours Per Day (ICD-10-PCS; principal; 2019-06-11)
PROC: 5A1D70Z Performance of Urinary Filtration, Intermittent, Less than 6 Hours Per Day (ICD-10-PCS; 2019-06-12)
PROC: 5A1D70Z Performance of Urinary Filtration, Intermittent, Less than 6 Hours Per Day (ICD-10-PCS; 2019-06-14)
DX: I13.11 Hypertensive heart and chronic kidney disease without heart failure, with stage 5 chronic kidney disease, or end stage renal disease (principal); N18.6 End stage renal disease; I16.1 Hypertensive emergency; D61.818 Other pancytopenia; M62.838 Other muscle spasm; R25.1 Tremor, unspecified; I67.2 Cerebral atherosclerosis; I65.23 Occlusion and stenosis of bilateral carotid arteries; Z53.29 Procedure and treatment not carried out because of patient's decision for other reasons; E87.5 Hyperkalemia; E11.22 Type 2 diabetes mellitus with diabetic chronic kidney disease; Z99.2 Dependence on renal dialysis; Z79.899 Other long term (current) drug therapy
CPT/HCPCS: 36415; 70498; 70551; 71045; 80048; 80053; 80061; 82390; 82550; 82962; 83735; 83880; 84439; 84443; 84481; 84484; 85025; 93005; 93880; 93970; 96374; 97161; 97166; 99285; J1650; J2060; J7030; Q9967

== ENCOUNTER 2019-12-23 09:11 | Inpatient (IN) | payer MEDICARE, MEDICAID ==
[~2019-12-23] VITALS: Ht 165.1 cm; Wt 68.9 kg
[2019-12-23] MEDS ORDERED: NITROGLYCERIN 0.4MG TABLET SL SL PRN (10:00)
[2019-12-23] MEDS ORDERED: ASPIRIN 81MG TABLET PO ONE (10:00)
[2019-12-23 10:06] LABS: EOSINOPHILS % 4.8 % (0.0-5.0); HEMATOCRIT. 34.4 % (42.0-52.0); HEMOGLOBIN. 12.2 g/dL (14.0-18.0); LYMPHOCYTES % 31.7 % (20.0-50.0); MEAN CORPUSCULAR HEMOGLOBIN 34.3 pg (28.0-32.0); MEAN CORPUSCULAR VOLUME 97.1 fL (80.0-94.0); MEAN PLATELET VOLUME 8.9 fl (7.4-10.4); MONOCYTES % 7.3 % (2.0-8.0); NEUTROPHILS % 55.2 % (40.0-76.0); PLATELET 91 x1000/uL (130-400); RED BLOOD CELL COUNT 3.54 mill/uL (4.7-6.1); RED CELL DISTRIBUTION WIDTH 14.9 % (11.6-14.6)
[2019-12-23 10:10] LABS: CHLORIDE 92 mEq/L (98-107)
[2019-12-23] MEDS ORDERED: MORPHINE SULFATE 2 MG/ML CPJ (NOT FOR IM USE) IV PRN (10:30)
[2019-12-23] MEDS ORDERED: ENOXAPARIN 40MG/0.4ML SYR SUBCUT SCH (10:30)
[2019-12-23] MEDS ORDERED: CLONIDINE 0.1MG TABLET PO PRN (10:30)
[2019-12-23] MEDS ORDERED: DOCUSATE SODIUM 100MG CAPSULE PO PRN (10:30)
[2019-12-23] MEDS ORDERED: ONDANSETRON HCL 4MG/2ML INJ IV PRN (10:30)
[2019-12-23] MEDS ORDERED: METOPROLOL TARTRATE 50MG TABLET PO SCH (10:30)
[2019-12-23] MEDS ORDERED: ACETAMINOPHEN 325MG TABLET PO PRN (10:30)
[2019-12-23] MEDS: AMLODIPINE 10MG TABLET PO SCH (11:14)
[2019-12-23] MEDS: LOSARTAN POTASSIUM 25 MG TABLET PO SCH (12:55)
[2019-12-23 15:48] LABS: BG BASE EXCESS 5.3 mmol/L (-2.0-2.0); BG CARBOXYHEMOGLOBIN 0.6 % (0.5-1.5); BG DEOXYHEMOGLOBIN 1.4 % (0.0-5.0); BG HCO3 ACT 29.6 mmol/L (22.0-26.0); BG METHEMOGLOBIN 0.3 % (0.0-1.5); BG OXYGEN SATURATION 98.6 % (92.0-98.5); BG OXYHEMOGLOBIN 97.7 % (94.0-97.0); BG PCO2 42.2 mmHg (35.0-45.0); BG PH 7.464 (7.350-7.450); BG PO2 147.7 mmHg (75.0-100.0); BG SAMPLE SITE LEFT BRACHIAL; BG TOTAL HEMOGLOBIN 11.6 g/dL (12.0-18.0); BG VENT MODE NASAL CANNULA
[2019-12-23] MEDS ORDERED: CEFTRIAXONE 1 G PREMIX 50 ML IV SCH (16:00)
[2019-12-23] MEDS: ALBUTEROL 6.7GM HFA INHALER ORI SCH ×2 (16:00→22:46)
[2019-12-23] MEDS: METHYLPREDNISOLONE SOD SUCC 40 MG/ML VIAL IV SCH (16:08)
[2019-12-23 18:05] LABS: ETHANOL BLOOD < 10 mg/dL
[2019-12-23 18:10] LABS: T4 FREE 1.05 ng/dL (0.76-1.46)
[2019-12-23 18:18] LABS: FOLIC ACID (FOLATE) SERUM 8.4 ng/mL (>5.38)
[2019-12-23] MEDS ORDERED: ATORVASTATIN CALCIUM 20MG TABLET PO SCH (21:00)
[2019-12-23] MEDS: CARVEDILOL 6.25 MG TABLET PO SCH (22:00)
[2019-12-24] MEDS: METHYLPREDNISOLONE SOD SUCC 40 MG/ML VIAL IV SCH ×2 (00:06→08:33)
[2019-12-24 03:37] VITALS: BP 156/80
[2019-12-24 07:17] LABS: BASOPHILS % 0.1 % (0.0-2.0); HEMATOCRIT. 37.1 % (42.0-52.0); HEMOGLOBIN. 12.8 g/dL (14.0-18.0); LYMPHOCYTES % 15.6 % (20.0-50.0); MEAN CORPUSCULAR HEMOGLOBIN 33.6 pg (28.0-32.0); MEAN CORPUSCULAR VOLUME 97.1 fL (80.0-94.0); MEAN PLATELET VOLUME 9.1 fl (7.4-10.4); MONOCYTES % 1.6 % (2.0-8.0); NEUTROPHILS % 82.7 % (40.0-76.0); PLATELET 83 x1000/uL (130-400); RED BLOOD CELL COUNT 3.82 mill/uL (4.7-6.1); RED CELL DISTRIBUTION WIDTH 14.5 % (11.6-14.6)
[2019-12-24 07:34] LABS: CHLORIDE 90 mEq/L (98-107)
[2019-12-24 07:41] LABS: LDL CHOLESTEROL 128 mg/dL (5-100)
[2019-12-24 07:42] LABS: HDL CHOLESTEROL 39 mg/dL (40-59)
[2019-12-24 08:00] VITALS: BP 153/80
[2019-12-24] MEDS: CARVEDILOL 6.25 MG TABLET PO SCH (08:33)
[2019-12-24] MEDS: LOSARTAN POTASSIUM 25 MG TABLET PO SCH (08:33)
[2019-12-24] MEDS: AMLODIPINE 10MG TABLET PO SCH (08:33)
[2019-12-24] MEDS ORDERED: ENOXAPARIN 30MG/0.3ML SYR SUBCUT SCH (09:00)
[2019-12-24] MEDS ORDERED: DEXTROSE 50% WATER 50ML SYRINGE IV PRN (11:45)
[2019-12-24] MEDS ORDERED: BLOOD SUGAR DIAGNOSTIC STRIP TEST SCH (11:45)
[2019-12-24] MEDS ORDERED: INSULIN LISPRO 100 UNITS/ML SUBCUT SCH (12:15)
[2019-12-24] MEDS ORDERED: CEFTRIAXONE 1 G PREMIX 50 ML IV SCH (16:00)
[2019-12-28 06:12] LABS: BARBITURATE SCREEN Negative ug/mL (Cutoff:0.1); BENZODIAZEPINE SCREEN Negative ng/mL (Cutoff:20); OPIATES SCREEN Negative ng/mL (Cutoff:5); PHENCYCLIDINE SCREEN Negative ng/mL (Cutoff:8)
== END 2019-12-24 12:45 | disposition left against medical advice (07) | DRG 871 ==
LOC: ER 09:11 → 5WST 11:19 → EDBEDREQ 11:37 → ENRESERV 12-24 02:06
PROVIDERS: ADMIT Internal Medicine Nephrology; ATTEND Internal Medicine Nephrology
PROC: 5A1D70Z Performance of Urinary Filtration, Intermittent, Less than 6 Hours Per Day (ICD-10-PCS; principal; 2019-12-24)
DX: A41.9 Sepsis, unspecified organism (principal); J96.00 Acute respiratory failure, unspecified whether with hypoxia or hypercapnia; G92 Toxic encephalopathy; N18.6 End stage renal disease; D61.818 Other pancytopenia; I13.2 Hypertensive heart and chronic kidney disease with heart failure and with stage 5 chronic kidney disease, or end stage renal disease; I42.9 Cardiomyopathy, unspecified; I50.22 Chronic systolic (congestive) heart failure; E11.22 Type 2 diabetes mellitus with diabetic chronic kidney disease; E11.319 Type 2 diabetes mellitus with unspecified diabetic retinopathy without macular edema; E78.00 Pure hypercholesterolemia, unspecified; E78.5 Hyperlipidemia, unspecified; I25.10 Atherosclerotic heart disease of native coronary artery without angina pectoris; H54.8 Legal blindness, as defined in USA; M62.838 Other muscle spasm; R25.1 Tremor, unspecified; Z20.828 Contact with and (suspected) exposure to other viral communicable diseases; Z53.29 Procedure and treatment not carried out because of patient's decision for other reasons; D64.9 Anemia, unspecified; R26.89 Other abnormalities of gait and mobility; Z86.73 Personal history of transient ischemic attack (TIA), and cerebral infarction without residual deficits; Z90.5 Acquired absence of kidney; Z91.19 Patient's noncompliance with other medical treatment and regimen; Z99.2 Dependence on renal dialysis; Z79.899 Other long term (current) drug therapy
CPT/HCPCS: 36415; 36600; 71045; 80053; 80061; 80307; 80320; 82140; 82375; 82607; 82746; 82805; 83036; 83735; 84439; 84443; 84481; 84484; 85025; 85379; 93005; 93306; 94640; 99285; J0696; J2920; C9803-CS; G0480; U0003-CS

== ENCOUNTER 2020-05-09 07:48 | Inpatient (IN) | payer MEDICARE, MEDICAID ==
[~2020-05-09] VITALS: Ht 165.1 cm; Wt 71.7 kg
[2020-05-09] MEDS ORDERED: ACETAMINOPHEN 325MG TABLET PO STA (08:33)
[2020-05-09] MEDS ORDERED: CLONIDINE 0.1MG TABLET PO ONE (08:45)
[2020-05-09 08:54] LABS: BASOPHILS % 1.2 % (0.0-2.0); EOSINOPHILS % 7.8 % (0.0-5.0); HEMATOCRIT. 28.7 % (42.0-52.0); HEMOGLOBIN. 10.1 g/dL (14.0-18.0); LYMPHOCYTES % 25.9 % (20.0-50.0); MEAN CORPUSCULAR HEMOGLOBIN 32.9 pg (28.0-32.0); MEAN PLATELET VOLUME 7.7 fl (7.4-10.4); MONOCYTES % 10.4 % (2.0-8.0); NEUTROPHILS % 54.7 % (40.0-76.0); PLATELET 111 x1000/uL (130-400); RED BLOOD CELL COUNT 3.06 mill/uL (4.7-6.1); RED CELL DISTRIBUTION WIDTH 12.6 % (11.6-14.6)
[2020-05-09 08:58] LABS: CHLORIDE 95 mEq/L (98-107)
[2020-05-09 09:01] LABS: PROTHROMBIN TIME 10.8 sec (9.6-11.0)
[2020-05-09] MEDS ORDERED: POTASSIUM CHLORIDE 20MEQ TABLET SR PO NR (11:45)
[2020-05-09] MEDS: LISINOPRIL 5MG TABLET PO SCH (12:36)
[2020-05-09] MEDS ORDERED: ONDANSETRON HCL 4MG/2ML INJ IV PRN (14:00)
[2020-05-09] MEDS ORDERED: IPRATROPIUM/ALBUTEROL 0.5-3(2.5)MG/3ML NEB HHN PRN (14:00)
[2020-05-09] MEDS ORDERED: LORAZEPAM 0.5MG TABLET PO PRN (14:00)
[2020-05-09] MEDS ORDERED: ACETAMINOPHEN 325MG TABLET PO PRN (14:00)
[2020-05-09] MEDS ORDERED: HYDROCODONE/ACETAMINOPHEN 5/325MG TABLET PO PRN (14:00)
[2020-05-09 16:47] VITALS: BP 170/73
[2020-05-09] MEDS ORDERED: PNEUMOCOCCAL 23-VAL P-SAC VAC 0.5 ML IM ONE (17:30)
[2020-05-09] MEDS ORDERED: INFLUENZA VACCINE 05/PF 0.5 ML VIAL IM ONE (17:30)
[2020-05-09 17:50] VITALS: BP 171/87
[2020-05-09] MEDS: CLONIDINE 0.1MG TABLET PO PRN (18:28)
[2020-05-09 20:00] VITALS: BP 159/71
[2020-05-09] MEDS: AMLODIPINE 2.5MG TABLET PO SCH (21:21)
[2020-05-09] MEDS: ATORVASTATIN CALCIUM 10MG TABLET PO SCH (21:21)
[2020-05-10] VITALS (7 sets, daily range): BP systolic 132–187; BP diastolic 60–84
[2020-05-10 07:06] LABS: BASOPHILS % 0.9 % (0.0-2.0); EOSINOPHILS % 6.8 % (0.0-5.0); HEMATOCRIT. 27.2 % (42.0-52.0); HEMOGLOBIN. 9.7 g/dL (14.0-18.0); LYMPHOCYTES % 23.1 % (20.0-50.0); MEAN CORPUSCULAR HEMOGLOBIN 33.3 pg (28.0-32.0); MEAN CORPUSCULAR VOLUME 93.8 fL (80.0-94.0); MEAN PLATELET VOLUME 7.9 fl (7.4-10.4); MONOCYTES % 9.5 % (2.0-8.0); NEUTROPHILS % 59.7 % (40.0-76.0); PLATELET 115 x1000/uL (130-400); RED CELL DISTRIBUTION WIDTH 12.7 % (11.6-14.6)
[2020-05-10] MEDS: AMLODIPINE 2.5MG TABLET PO SCH ×2 (09:00→20:38)
[2020-05-10] MEDS: LISINOPRIL 5MG TABLET PO SCH (09:00)
[2020-05-10] MEDS ORDERED: SODIUM POLYSTYRENE SULFONATE 15 G/60 ML BOT PO NR (11:30)
[2020-05-10] MEDS ORDERED: ATOR40TA70 MT (11:48)
[2020-05-10] MEDS ORDERED: THROAT LOZENGES-BENZOCAINE/MENTH/CETYLPYRD CL LOZENGES MM PRN (14:00)
[2020-05-10] MEDS: CLONIDINE 0.1MG TABLET PO PRN (15:08)
[2020-05-10] MEDS: CARVEDILOL 3.125 MG TABLET PO SCH (20:38)
[2020-05-10] MEDS: ATORVASTATIN CALCIUM 10MG TABLET PO SCH (20:38)
[2020-05-11] VITALS (7 sets, daily range): BP systolic 139–173; BP diastolic 60–86
[2020-05-11] MEDS: ACETAMINOPHEN 325MG TABLET PO PRN ×2 (00:37→16:30)
[2020-05-11] MEDS: CLONIDINE 0.1MG TABLET PO PRN ×2 (00:37→16:09)
[2020-05-11 06:14] LABS: BASOPHILS % 0.8 % (0.0-2.0); EOSINOPHILS % 7.2 % (0.0-5.0); HEMATOCRIT. 26.3 % (42.0-52.0); HEMOGLOBIN. 9.2 g/dL (14.0-18.0); LYMPHOCYTES % 26.5 % (20.0-50.0); MEAN CORPUSCULAR HEMOGLOBIN 32.9 pg (28.0-32.0); MEAN CORPUSCULAR VOLUME 94.1 fL (80.0-94.0); MONOCYTES % 12.9 % (2.0-8.0); NEUTROPHILS % 52.6 % (40.0-76.0); PLATELET 106 x1000/uL (130-400); RED BLOOD CELL COUNT 2.79 mill/uL (4.7-6.1); RED CELL DISTRIBUTION WIDTH 12.6 % (11.6-14.6)
[2020-05-11] MEDS: LISINOPRIL 5MG TABLET PO SCH (08:12)
[2020-05-11] MEDS: CARVEDILOL 3.125 MG TABLET PO SCH ×2 (08:13→20:23)
[2020-05-11] MEDS: AMLODIPINE 2.5MG TABLET PO SCH ×2 (09:40→20:23)
[2020-05-11] MEDS ORDERED: AMLO5TAB88 MT (17:50)
[2020-05-11] MEDS ORDERED: LISI-186 PO (17:50)
[2020-05-11] MEDS ORDERED: COR3 PO (17:50)
[2020-05-11] MEDS ORDERED: HYDRALAZINE 20MG/ML VIAL IV PRN (18:00)
[2020-05-11] MEDS: ATORVASTATIN CALCIUM 10MG TABLET PO SCH (20:22)
[2020-05-12] VITALS: BP 173/73
[2020-05-12 04:00] VITALS: BP 164/71
[2020-05-12] MEDS: CLONIDINE 0.1MG TABLET PO PRN (05:59)
[2020-05-12 08:00] VITALS: BP_SYST 157; BP_SYST 176; BP_DIAS 66; BP_DIAS 79
[2020-05-12] MEDS ORDERED: AMLODIPINE 10MG TABLET PO SCH (09:00)
[2020-05-12] MEDS: HYDRALAZINE HCL 50MG TABLET PO SCH ×2 (09:24→12:59)
[2020-05-12] MEDS: CARVEDILOL 3.125 MG TABLET PO SCH (09:26)
[2020-05-12 12:00] VITALS: BP_SYST 125; BP_SYST 155; BP_DIAS 53; BP_DIAS 66
[2020-05-12] MEDS: ACETAMINOPHEN 325MG TABLET PO PRN (12:06)
[2020-05-12] MEDS ORDERED: HYDRALAZINE HCL 50MG TABLET PO SCH (14:00)
[2020-05-13 05:07] LABS: BARBITURATE SCREEN Negative ug/mL (Cutoff:0.1); BENZODIAZEPINE SCREEN Negative ng/mL (Cutoff:20); OPIATES SCREEN Negative ng/mL (Cutoff:5); PHENCYCLIDINE SCREEN Negative ng/mL (Cutoff:8)
== END 2020-05-12 15:15 | disposition home health service (06) | DRG 304 ==
LOC: ER 07:48 → EDBEDREQTM 12:06 → EDBEDREQ 12:06 → 8WST 12:08 → EDBEDREQTM 12:09 → EDBEDREQ 12:09 → ENRESERV 16:00
PROVIDERS: ADMIT Internal Medicine; ATTEND Internal Medicine
PROC: 5A1D70Z Performance of Urinary Filtration, Intermittent, Less than 6 Hours Per Day (ICD-10-PCS; principal; 2020-05-11)
DX: I16.1 Hypertensive emergency (principal); N18.6 End stage renal disease; D61.818 Other pancytopenia; E87.1 Hypo-osmolality and hyponatremia; G93.40 Encephalopathy, unspecified; I42.9 Cardiomyopathy, unspecified; I50.22 Chronic systolic (congestive) heart failure; E11.22 Type 2 diabetes mellitus with diabetic chronic kidney disease; E87.6 Hypokalemia; I44.0 Atrioventricular block, first degree; R26.0 Ataxic gait; R26.89 Other abnormalities of gait and mobility; F19.10 Other psychoactive substance abuse, uncomplicated; E78.00 Pure hypercholesterolemia, unspecified; E78.5 Hyperlipidemia, unspecified; I13.2 Hypertensive heart and chronic kidney disease with heart failure and with stage 5 chronic kidney disease, or end stage renal disease; H54.8 Legal blindness, as defined in USA; I25.10 Atherosclerotic heart disease of native coronary artery without angina pectoris; Z86.73 Personal history of transient ischemic attack (TIA), and cerebral infarction without residual deficits; Z79.899 Other long term (current) drug therapy; Z91.19 Patient's noncompliance with other medical treatment and regimen; Z99.2 Dependence on renal dialysis
CPT/HCPCS: 36415; 70544; 70553; 71045; 80048; 80053; 80307; 83735; 84484; 85025; 90686; 90732; 93005; 97162; 97166; 99285; J0360; J7040